=== PATIENT | female | born 1975 | race Hispanic/Latino ===

== ENCOUNTER 2019-08-19 16:41 | Emergency (ER) | payer SELFPAY ==
[2019-08-19] MEDS ORDERED: SODIUM CHLORIDE 0.9% 1000 ML 1,000 ML IV ONE (17:03)
[2019-08-19] MEDS ORDERED: MORPHINE 4 MG/1 ML INJ IV ONE (17:03)
[2019-08-19] MEDS ORDERED: ONDANSETRON 4 MG/2 ML INJ IV ONE (17:03)
[2019-08-19] MEDS ORDERED: FAMOTIDINE 20 MG/2 ML INJ IV ONE (17:03)
[2019-08-19] MEDS ORDERED: DICYCLOMINE 20 MG/2 ML INJ IM ONE (17:03)
[2019-08-19 17:39] LABS: Basophils # (Auto) 0.1 K/mm3 (0.0-0.1); Basophils % (Auto) 0.5 % (0.0-1.8); Eosinophils % (Auto) 0.2 % (0.0-4.3); Hematocrit 45.5 % (30.3-42.9); Hemoglobin 15.5 gm/dl (10.1-14.3); Lymphocytes # (Auto) 1.9 K/mm3 (1.2-5.4); Lymphocytes % (Auto) 15.1 % (13.4-35.0); Mean Corpuscular HGB Conc 34 % (30-34); Mean Corpuscular Volume 94 fl (79-97); Monocytes # (Auto) 0.9 K/mm3 (0.0-0.8); Monocytes % (Auto) 7.4 % (0.0-7.3); Platelet Count 488 K/mm3 (140-440); Red Blood Count 4.86 M/mm3 (3.65-5.03); Red Cell Distribution Width 14.6 % (13.2-15.2)
[2019-08-19 17:54] LABS: Alanine Aminotransferase 11 units/L (7-56); Albumin 4.5 g/dL (3.9-5); BUN/Creatinine Ratio 16; Bilirubin,Direct 0.2 mg/dL (0-0.2); Blood Urea Nitrogen 13 mg/dL (7-17); Calcium 9.9 mg/dL (8.4-10.2); Hemolysis Index 10
[2019-08-19] MEDS ORDERED: KETOROLAC 30 MG/1 ML INJ IV ONE (18:46)
--- NOTE | 2019-08-19 18:49 | Cat Scan Report ---
CT abdomen pelvis w con INDICATION: MAIN: abd pain with NV 100cc Omni 300. TECHNIQUE: All CT scans at this location are performed using CT dose reduction for ALARA by means of automated e xposure control. COMPARISON: 11/18/2015 FINDINGS: Lung bases are clear. Cholecystectomy. Mild prominence of the biliary tree is unchanged. Common duct can be traced to the level of the ampulla. It tapers narrowly, with no evidence of stone or mass. No liver lesions. Spleen, pancreas, kidneys and adrenals are negative. Abdominal aorta is normal in s ize. No adenopathy. Pelvis Normal appendix. Uterus and ovaries appear negative. Urinary bladder is unremarkable. No significant bowel abnormalities. No significant skeletal lesions. IMPRESSION: 1. Mild prominence of the biliary tree following cholecystectomy, unchanged in 4 years and thought to be within normal limits. 2. No acute abnormalities. Signer Name: Marcus Walls MD Signed: 08/19/2019 6:45 PM Workstation Name: [id number]
[2019-08-19] MEDS ORDERED: LORazepam 2 MG/ML VIAL IV ONE (19:03)
[2019-08-19 19:26] LABS: Bilirubin,Urine NEG (Negative); Blood,Urine NEG (Negative); Color,Urine Yellow (Yellow); Mucus,Urine FEW /HPF; Protein,Urine <15 mg/dL mg/dL (Negative); Urobilinogen,Urine < 2.0 mg/dL (<2.0); WBC,Urine < 1.0 /HPF (0.0-6.0)
--- NOTE | 2019-08-19 19:26 | Emergency Department Report ---
ED Abdominal Pain HPI - General Chief Complaint: Abdominal Pain Stated Complaint: ABD PAIN Time Seen by Provider: 08/19/19 16:57 Source: patient, EMS Mode of arrival: Stretcher Limitations: No Limitations - History of Present Illness Initial Comments: Patient is a 44-year-old female with past medical history of diverticulitis and hypertension who is complaining of 2 days of epigastric pain. Patient states she is had multiple episodes of vomiting. Patient states the pain is 10 out of 10 in severity and radiates to her back. Patient denies diarrhea. States there is been no blood in her vomit. She denies fevers chills cough cold or congestion at this time. MD Complaint: abdominal pain Severity scale (0 -10): 10 - Related Data Previous Rx's Medication Instructions Recorded Last Taken Type HYDROcodone/APAP 5-325 [Olive 1 - 2 each PO Q6HR PRN #20 tablet 11/18/15 Unknown Rx 5/325] Sulfamethoxazole/Trimethoprim 1 each PO BID #14 tablet 11/18/15 Unknown Rx [Bactrim DS TAB] Dicyclomine [Bentyl] 20 mg PO QID #10 tablet 08/19/19 Unknown Rx Ondansetron [Zofran Odt] 4 mg PO Q8HR #10 tab.rapdis 08/19/19 Unknown Rx Pantoprazole [Protonix] 40 mg PO QDAY #30 tablet 08/19/19 Unknown Rx Allergies Allergy/AdvReac Type Severity Reaction Status Date / Time No Known Allergies Allergy Unverified 11/18/15 08:29 ED Review of Systems ROS: Stated complaint: ABD PAIN Other details as noted in HPI Comment: All other systems reviewed and negative ED Past Medical Hx - Past Medical History Hx Hypertension: Yes Additional medical history: IBS - Surgical History Hx Cholecystectomy: Yes Additional Surgical History: X 3 - Social History Smoking Status: Current Every Day Smoker Substance Use Type: None - Medications Home Medications: Home Medications Medication Instructions Recorded Confirmed Last Taken Type HYDROcodone/APAP 5-325 [Olive 1 - 2 each PO Q6HR PRN #20 tablet 11/18/15 Unknown Rx 5/325] Sulfamethoxazole/Trimethoprim 1 each PO BID #14 tablet 11/18/15 Unknown Rx [Bactrim DS TAB] Dicyclomine [Bentyl] 20 mg PO QID #10 tablet 08/19/19 Unknown Rx Ondansetron [Zofran Odt] 4 mg PO Q8HR #10 tab.rapdis 08/19/19 Unknown Rx Pantoprazole [Protonix] 40 mg PO QDAY #30 tablet 08/19/19 Unknown Rx ED Physical Exam - General Limitations: No Limitations General appearance: alert, in distress - Head Head exam: Present: atraumatic, normocephalic - Eye Eye exam: Present: normal appearance, PERRL, EOMI - ENT ENT exam: Present: mucous membranes moist - Neck Neck exam: Present: normal inspection - Respiratory Respiratory exam: Present: normal lung sounds bilaterally. Absent: respiratory distress, wheezes, rales, rhonchi - Cardiovascular Cardiovascular Exam: Present: regular rate, normal rhythm. Absent: systolic murmur, diastolic murmur, rubs, gallop - GI/Abdominal GI/Abdominal exam: Present: soft, tenderness, normal bowel sounds. Absent: distended, guarding, rebound, rigid, pulsatile mass - Rectal Rectal exam: Present: deferred - Extremities Exam Extremities exam: Present: normal inspection - Back Exam Back exam: Present: normal inspection - Neurological Exam Neurological exam: Present: alert, oriented X3 - Psychiatric Psychiatric exam: Present: normal affect, normal mood - Skin Skin exam: Present: warm, dry, intact, normal color. Absent: rash ED Course Vital Signs 08/19/19 08/19/19 16:55 18:31 Temperature 98.5 F Pulse Rate 91 H Respiratory 12 Rate Blood Pressure 223/114 Blood Pressure 163/108 [Right] O2 Sat by Pulse 98 99 Oximetry ED Medical Decision Making - Lab Data Result diagrams: 08/19/19 17:24 08/19/19 17:24 Lab Results 08/19/19 08/19/19 08/19/19 Range/Units 17:24 17:24 17:24 WBC 12.3 H (4.5-11.0) K/mm3 RBC 4.86 (3.65-5.03) M/mm3 Hgb 15.5 H (10.1-14.3) gm/dl Hct 45.5 H (30.3-42.9) % MCV 94 (79-97) fl MCH 32 (28-32) pg MCHC 34 (30-34) % RDW 14.6 (13.2-15.2) % Plt Count 488 H (140-440) K/mm3 Lymph % (Auto) 15.1 (13.4-35.0) % [place] % (Auto) 7.4 H (0.0-7.3) % Eos % (Auto) 0.2 (0.0-4.3) % Baso % (Auto) 0.5 (0.0-1.8) % Lymph # 1.9 (1.2-5.4) K/mm3 [place] # 0.9 H (0.0-0.8) K/mm3 Eos # 0.0 (0.0-0.4) K/mm3 Baso # 0.1 (0.0-0.1) K/mm3 Seg Neutrophils % 76.8 H (40.0-70.0) % Seg Neutrophils # 9.5 H (1.8-7.7) K/mm3 Sodium 138 (137-145) mmol/L Potassium 3.7 (3.6-5.0) mmol/L Chloride 97.6 L (98-107) mmol/L Carbon Dioxide 21 L (22-30) mmol/L Anion Gap 23 mmol/L BUN 13 (7-17) mg/dL Creatinine 0.8 (0.7-1.2) mg/dL Estimated GFR > 60 ml/min BUN/Creatinine Ratio 16 % Glucose 170 H (65-100) mg/dL Calcium 9.9 (8.4-10.2) mg/dL Total Bilirubin 0.70 (0.1-1.2) mg/dL Direct Bilirubin 0.2 (0-0.2) mg/dL Indirect Bilirubin 0.5 mg/dL AST 16 (5-40) units/L ALT 11 (7-56) units/L Alkaline Phosphatase 80 (35-129) units/L Total Protein 8.1 (6.3-8.2) g/dL Albumin 4.5 (3.9-5) g/dL Albumin/Globulin Ratio 1.3 % Lipase 23 (13-60) units/L HCG, Qual Negative (Negative) Urine Bilirubin (Negative) Urine RBC (Auto) (0.0-6.0) /HPF U Epithel Cells (Auto) (0-13.0) /HPF 04//20 Range/Units 19:06 WBC (4.5-11.0) K/mm3 RBC (3.65-5.03) M/mm3 Hgb (10.1-14.3) gm/dl Hct (30.3-42.9) % MCV (79-97) fl MCH (28-32) pg MCHC (30-34) % RDW (13.2-15.2) % Plt Count (140-440) K/mm3 Lymph % (Auto) (13.4-35.0) % [place] % (Auto) (0.0-7.3) % Eos % (Auto) (0.0-4.3) % Baso % (Auto) (0.0-1.8) % Lymph # (1.2-5.4) K/mm3 [place] # (0.0-0.8) K/mm3 Eos # (0.0-0.4) K/mm3 Baso # (0.0-0.1) K/mm3 Seg Neutrophils % (40.0-70.0) % Seg Neutrophils # (1.8-7.7) K/mm3 Sodium (137-145) mmol/L Potassium (3.6-5.0) mmol/L Chloride (98-107) mmol/L Carbon Dioxide (22-30) mmol/L Anion Gap mmol/L BUN (7-17) mg/dL Creatinine (0.7-1.2) mg/dL Estimated GFR ml/min BUN/Creatinine Ratio % Glucose (65-100) mg/dL Calcium (8.4-10.2) mg/dL Total Bilirubin (0.1-1.2) mg/dL Direct Bilirubin (0-0.2) mg/dL Indirect Bilirubin mg/dL AST (5-40) units/L ALT (7-56) units/L Alkaline Phosphatase (35-129) units/L Total Protein (6.3-8.2) g/dL Albumin (3.9-5) g/dL Albumin/Globulin Ratio % Lipase (13-60) units/L HCG, Qual (Negative) Urine Bilirubin Neg (Negative) Urine RBC (Auto) 1.0 (0.0-6.0) /HPF U Epithel Cells (Auto) 3.0 (0-13.0) /HPF - Radiology Data [facility] [address] [place] [address] Cat Scan Report Signed Patient: AMADEO BRADFORD MR#: [id number] 3 : 1975 Acct:[id number] Age/Sex: 44 / F ADM Date: 08/19/19 Loc: ED Attending Dr: Ordering Physician: TORO HELTON MD Date of Service: 08/19/19 Procedure(s): CT abdomen pelvis w con Accession Number(s): [id number] cc: TORO HELTON MD CT abdomen pelvis w con INDICATION: MAIN: abd pain with NV 100cc Omni 300. TECHNIQUE: All CT scans at this location are performed using CT dose reduction for ALARA by means of automated exposure control. COMPARISON: 11/18/2015 FINDINGS: Lung bases are clear. Cholecystectomy. Mild prominence of the biliary tree is unchanged. Common duct can be traced to the level of the ampulla. It tapers narrowly, with no evidence of stone or mass. No liver lesions. Spleen, pancreas, kidneys and adrenals are negative. Abdominal aorta is normal in size. No adenopathy. Pelvis Normal appendix. Uterus and ovaries appear negative. Urinary bladder is unremarkable. No significant bowel abnormalities. No significant skeletal lesions. IMPRESSION: 1. Mild prominence of the biliary tree following cholecystectomy, unchanged in 4 years and thought to be within normal limits. 2. No acute abnormalities. Signer Name: Marcus Walls MD Signed: 08/19/2019 6:45 PM Workstation Name: [id number] - Medical Decision Making Patient is a 44-year-old female who is presenting with epigastric pain. Her CT is within normal limits and her laboratory studies are unremarkable. Patient stated there was minimal relief with narcotics and pain meds. Patient had no actual episodes of emesis here in the emergency department. Patient will be referred to gastro enterology and she will be discharged home. Patient's blood pressure was elevated but was showing no evidence of any endorgan damage. Critical care attestation.: If time is entered above; I have spent that time in minutes in the direct care of this critically ill patient, excluding procedure time. ED Disposition Clinical Impression: Hypertensive urgency Abdominal pain Qualifiers: Abdominal location: generalized Qualified Code(s): R10.84 - Generalized abdominal pain Gastritis Qualifiers: Gastritis type: unspecified gastritis Chronicity: acute Gastritis bleeding: without bleeding Qualified Code(s): K29.00 - Acute gastritis without bleeding Disposition: DC- TO HOME OR SELFCARE Is pt being admited?: No Does the pt Need Aspirin: No Condition: Stable Instructions: Abdominal Pain (ED), Hypertension (ED) Referrals: [facility] [Provider Group] - 3-5 Days Time of Disposition: 19:31
[2019-08-19 20:06] VITALS: BP 160/112
== END 2019-08-19 20:06 | disposition home or self-care (01) ==
LOC: ED 16:41
DX: K29.70 Gastritis, unspecified, without bleeding (principal); I16.0 Hypertensive urgency; R10.13 Epigastric pain; R11.10 Vomiting, unspecified; K58.9 Irritable bowel syndrome, unspecified; F17.200 Nicotine dependence, unspecified, uncomplicated; Z98.890 Other specified postprocedural states; Z79.899 Other long term (current) drug therapy
CPT/HCPCS: 36415; 74177; 80048; 80076; 81001; 83690; 84703; 85025; 96361; 96372; 96374; 96375; 99284; J0500; J1885; J2060; J2270; J2405; J7030; Q9967